=== PATIENT | female | born 1950 | race Caucasian/White ===

== ENCOUNTER 2020-08-04 18:06 | Inpatient (IN) | payer MEDICARE, MEDICAID ==
[~2020-08-04] VITALS: Ht 180.3 cm; Wt 74.0 kg
[2020-08-04] MEDS ORDERED: ondansetron 4mg rapidly disintigrating tab PO ONE (21:25)
[2020-08-04] MEDS ORDERED: HYDROcodone/acetaminophen 5mg/325mg tablet PO ONE (21:25)
--- NOTE | 2020-08-04 21:27 | NUR ---
Port xray at bedside. 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
--- NOTE | 2020-08-04 21:38 | NUR ---
Lab at bedside for blood draw.
[2020-08-04 22:07] LABS: PARTIAL THROMBOPLASTIN TIME 30 SECONDS (22-32)
[2020-08-04 22:09] LABS: ALANINE AMINOTRANSFERASE 20 U/L (12-78); ALBUMIN 2.7 G/DL (3.4-5.0); ALBUMIN/GLOBULIN RATIO 0.7 (1.1-1.5); ALKALINE PHOSPHATASE 85 IU/L (46-116); ANION GAP 9 (8-16); ASPARTATE AMINO TRANSFERASE 24 U/L (10-37); BILIRUBIN,TOTAL 0.7 MG/DL (0.1-1.0); BLOOD UREA NITROGEN 24 MG/DL (7-18); BUN/CREATININE RATIO 18.9 (6.6-38.0); CALCIUM 8.4 MG/DL (8.5-10.1); CHLORIDE 102 MMOL/L (99-107); CREATININE 1.27 MG/DL (0.40-0.90); GLUCOSE 88 MG/DL (70-104); POTASSIUM 4.7 MMOL/L (3.5-5.1); SODIUM 134 MMOL/L (135-145); TOTAL CARBON DIOXIDE 22.6 MMOL/L (24-32); TOTAL PROTEIN 6.8 G/DL (6.4-8.2); eGFR 42 ML/MIN
[2020-08-04 22:46] LABS: HEMATOCRIT 29.1 % (35.0-45.0); MEAN CORPUSCULAR HEMOGLOBIN 18.8 PG (27.0-31.0); MEAN CORPUSCULAR HGB CONC 30.9 g/dL (33.0-36.5); MEAN CORPUSCULAR VOLUME 60.8 FL (78-98); MEAN PLATELET VOLUME 8.3 FL (7.4-10.4); PLATELET COUNT 392 X10'3 (140-440); RED BLOOD COUNT 4.79 X10'6 (4.20-5.60); RED CELL DISTRIBUTION WIDTH 21.3 % (11.5-14.5); WHITE BLOOD COUNT 9.3 X10'3 (4.5-11.0)
[2020-08-04 22:48] LABS: BASOPHILS # (AUTO) 0.1 X10'3 (0-0.2); BASOPHILS % (AUTO) 0.9 % (0-1); EOSINOPHILS # (AUTO) 0.1 X10'3 (0-0.9); EOSINOPHILS % (AUTO) 0.8 % (0-6); LYMPHOCYTES # (AUTO) 1.5 X10'3 (1.1-4.8); LYMPHOCYTES % (AUTO) 15.4 % (21-51); MONOCYTES # (AUTO) 1.2 X10'3 (0-0.9); MONOCYTES % (AUTO) 12.2 % (2-12); NEUTROPHILS # (AUTO) 6.8 X10'3 (1.8-7.7); NEUTROPHILS % (AUTO) 70.7 % (42-75)
[2020-08-04 22:55] LABS: D-DIMER 1.64 MG/L FEU (0-0.50)
[2020-08-04] MEDS ORDERED: furosemide 40mg/4ml inj IV ONE (23:40)
[2020-08-05] MEDS ORDERED: acetaminophen 325mg tablet PO PRN (01:45)
[2020-08-05] MEDS ORDERED: potassium Cl 20 mEq SR tablet PO PRN ×2 (01:45)
[2020-08-05] MEDS ORDERED: mag hydrox/Alum hydrox/simeth 30ml oral suspension PO PRN (01:45)
[2020-08-05] MEDS ORDERED: potassium CL 10mEq/100ml bag 100 ML IV PRN ×2 (01:45)
[2020-08-05] MEDS ORDERED: magnesium hydroxide 30ml (MOM) UD suspension PO PRN (01:45)
[2020-08-05] MEDS ORDERED: ondansetron/PF 4mg/2ml inj IV PRN (01:45)
[2020-08-05] MEDS ORDERED: SACU1TAB PO (02:35)
[2020-08-05] MEDS ORDERED: POTA-82 PO (02:35)
[2020-08-05] MEDS ORDERED: RIVA20TA PO (02:35)
[2020-08-05] MEDS ORDERED: DIGO250T2 PO (02:35)
[2020-08-05] MEDS ORDERED: BUPR75TA12 PO (02:35)
[2020-08-05] MEDS ORDERED: FURO40TA4 PO (02:35)
[2020-08-05] MEDS ORDERED: MYCO360T3 PO (02:35)
[2020-08-05] MEDS ORDERED: METO200T49 PO ×2 (02:35)
[2020-08-05] MEDS ORDERED: ALBU2.5V10 NEB (02:35)
--- NOTE | 2020-08-05 03:01 | NUR ---
MED REC COMPLETED BY PREVIOUS RN AND PHARMACY. PT UNSURE OF FULL LIST OF MEDICATIONS.
[2020-08-05] MEDS ORDERED: BUPR100T13 PO (03:09)
[2020-08-05] MEDS ORDERED: MYCO250C46 PO (03:22)
[2020-08-05] MEDS ORDERED: METO-539 PO (03:22)
--- NOTE | 2020-08-05 03:49 | NUR ---
reviewed medications with patient. unable to fully complete med rec until we contact family tomorrow due to vague list provided, and pt not knowing meds, doses, or times.
--- NOTE | 2020-08-05 04:26 | NUR ---
daughter: justin, [phone] discussed the need for updated medication list. daughter states that she will gather appropriate information.
--- NOTE | 2020-08-05 06:41 | NUR ---
Patient in room ED 7. I have received report from Hayden COOPER and had the opportunity to ask questions and assume patient care.
--- NOTE | 2020-08-05 07:00 | NUR ---
Patient arrived to the floor accompanied by ED personnel. Telemetry monitoring initiated, vital signs obtained, patient belongings placed at the bedside, patient oriented to the room and call light. Will continue to monitor.
[2020-08-05 07:24] VITALS: BP 120/69
[2020-08-05] MEDS: K and/or MAG REPLACEMENT MC SCH ×2 (08:00→20:00)
[2020-08-05] MEDS ORDERED: furosemide 10 MG/1 ML 10ml inj IV SCH (08:00)
[2020-08-05] MEDS: digoxin 250mcg (0.25mg) tablet PO SCH (08:00)
[2020-08-05] MEDS: mycophenolate mofetil 250mg capsule PO SCH ×2 (09:15→20:30)
[2020-08-05] MEDS: sacubitril/valsartan 24mg-26mg tablet PO SCH ×2 (09:16→20:29)
[2020-08-05] MEDS: buPROPion 100mg tablet PO SCH ×3 (09:16→20:29)
[2020-08-05] MEDS: metoprolol succinate 25mg (24-HOUR) SR. Tablet PO SCH (09:16)
[2020-08-05] MEDS: levoTHYROXINE 25mcg tablet PO SCH (09:17)
--- NOTE | 2020-08-05 09:25 | NUR ---
Paged Dr. Tavera: PAGER ID: [phone] MESSAGE: [id number] Mckenna Marie: Patient has 7/10 generalized pain related to her edema, can she have something for pain? 5mg Belcamp given in ER 11 hrs ago. Thank you, Rose [id number]
[2020-08-05] MEDS: HYDROcodone/acetaminophen 5mg/325mg tablet PO PRN (11:01)
[2020-08-05] MEDS ORDERED: normal saline 1000ml 1,000 ML IV SCH (11:05)
[2020-08-05 15:00] VITALS: BP 102/46
[2020-08-05] MEDS ORDERED: midazolam 2 mg/2 ml injection ONE (16:30)
[2020-08-05] MEDS ORDERED: fentaNYL/PF 50MCG/1 ML 2ML syringe ONE (16:30)
[2020-08-05] MEDS ORDERED: LIDOcaine 1% (10mg/ml)w/preservative injection 20ml MDV ONE (16:30)
[2020-08-05 18:00] VITALS: BP 98/63
--- NOTE | 2020-08-05 18:25 | NUR ---
Problems reprioritized. Patient report given, questions answered & plan of care reviewed with Adele COOPER.
--- NOTE | 2020-08-05 18:30 | NUR ---
Patient in room PCU 3025. I have received report from Rose COOPER and had the opportunity to ask questions and assume patient care.
[2020-08-05] MEDS: furosemide 10 MG/1 ML 10ml inj IV SCH (20:29)
[2020-08-05 22:00] VITALS: BP 98/63
[2020-08-06] MEDS: HYDROcodone/acetaminophen 5mg/325mg tablet PO PRN ×4 (00:07→21:02)
[2020-08-06 02:00] VITALS: BP 93/63
--- NOTE | 2020-08-06 04:54 | NUR ---
Orientee documentation: I have reviewed and agree with all interventions, assessments performed and documented by Timi COOPER. [place] Medication Administration: For this medication-pass time frame, all medication were reviewed, dispensed, administered and documented per hospital policy by Timi COOPER.
--- NOTE | 2020-08-06 06:13 | NUR ---
Problems reprioritized. Patient report given, questions answered & plan of care reviewed with Mary Kay COOPER.
--- NOTE | 2020-08-06 06:30 | NUR ---
Patient in room PCU 3025. I have received report from KENNETH Angulo and had the opportunity to ask questions and assume patient care.
[2020-08-06 06:51] LABS: ALANINE AMINOTRANSFERASE 15 U/L (12-78); ALBUMIN 2.3 G/DL (3.4-5.0); ALBUMIN/GLOBULIN RATIO 0.6 (1.1-1.5); ALKALINE PHOSPHATASE 75 IU/L (46-116); ANION GAP 9 (8-16); ASPARTATE AMINO TRANSFERASE 16 U/L (10-37); BILIRUBIN,TOTAL 0.5 MG/DL (0.1-1.0); BLOOD UREA NITROGEN 29 MG/DL (7-18); BUN/CREATININE RATIO 17.3 (6.6-38.0); CALCIUM 8.4 MG/DL (8.5-10.1); CHLORIDE 107 MMOL/L (99-107); CREATININE 1.68 MG/DL (0.40-0.90); GLUCOSE 97 MG/DL (70-104); POTASSIUM 4.7 MMOL/L (3.5-5.1); SODIUM 138 MMOL/L (135-145); TOTAL CARBON DIOXIDE 22.1 MMOL/L (24-32); eGFR 30 ML/MIN
[2020-08-06 07:22] LABS: BASOPHILS # (AUTO) 0.1 X10'3 (0-0.2); BASOPHILS % (AUTO) 0.8 % (0-1); EOSINOPHILS # (AUTO) 0.1 X10'3 (0-0.9); HEMATOCRIT 27.4 % (35.0-45.0); LYMPHOCYTES # (AUTO) 1.3 X10'3 (1.1-4.8); LYMPHOCYTES % (AUTO) 13.9 % (21-51); MEAN CORPUSCULAR HEMOGLOBIN 18.2 PG (27.0-31.0); MEAN CORPUSCULAR HGB CONC 29.2 g/dL (33.0-36.5); MEAN CORPUSCULAR VOLUME 62.3 FL (78-98); MEAN PLATELET VOLUME 8.2 FL (7.4-10.4); MONOCYTES # (AUTO) 1.5 X10'3 (0-0.9); MONOCYTES % (AUTO) 15.9 % (2-12); NEUTROPHILS # (AUTO) 6.6 X10'3 (1.8-7.7); NEUTROPHILS % (AUTO) 68.4 % (42-75); PLATELET COUNT 383 X10'3 (140-440); RED CELL DISTRIBUTION WIDTH 22.8 % (11.5-14.5); WHITE BLOOD COUNT 9.6 X10'3 (4.5-11.0)
[2020-08-06 07:38] LABS: TOTAL CELLS COUNTED 100
[2020-08-06 07:39] LABS: ANISOCYTOSIS 3+; HYPOCHROMASIA 2+; MICROCYTOSIS 2+; PLATELET ESTIMATE NORMAL; SCHISTOCYTES FEW
[2020-08-06] MEDS: K and/or MAG REPLACEMENT MC SCH ×2 (08:00→20:00)
[2020-08-06] MEDS: mycophenolate mofetil 250mg capsule PO SCH ×2 (08:05→20:53)
[2020-08-06] MEDS: furosemide 10 MG/1 ML 10ml inj IV SCH (08:07)
[2020-08-06] MEDS: metoprolol succinate 25mg (24-HOUR) SR. Tablet PO SCH ×2 (08:07→08:27)
[2020-08-06] MEDS: buPROPion 100mg tablet PO SCH ×3 (08:10→20:53)
[2020-08-06] MEDS: levoTHYROXINE 25mcg tablet PO SCH (08:10)
[2020-08-06] MEDS: sacubitril/valsartan 24mg-26mg tablet PO SCH ×2 (10:29→20:53)
[2020-08-06] MEDS: digoxin 250mcg (0.25mg) tablet PO SCH (10:29)
[2020-08-06 12:23] VITALS: BP 94/65
--- NOTE | 2020-08-06 12:30 | NUR ---
Student documentation: I have reviewed and agree with all interventions, assessments performed and documented by Jorge, Plate Hanger.
--- NOTE | 2020-08-06 12:30 | NUR ---
Student Medication Administration: For this medication-pass time frame, all medication were reviewed, dispensed, administered and documented per hospital policy by marvin Patel.
--- NOTE | 2020-08-06 13:48 | NUR ---
notified. PAGER ID: [phone] MESSAGE: Re: Marie Mckenna. [id number]. Still no word from Dr. Bills regarding Cath today. Do you want me to call the office? Also to continue keeping patient NPO? thanks. Mary Kay. [phone].
[2020-08-06 15:00] VITALS: BP 98/48
[2020-08-06 18:00] VITALS: BP 103/57
--- NOTE | 2020-08-06 18:13 | NUR ---
Problems reprioritized. Patient report given, questions answered & plan of care reviewed with KENNETH Angulo.
--- NOTE | 2020-08-06 18:17 | NUR ---
Patient in room PCU 3025. I have received report from Mary Kay COOPER and had the opportunity to ask questions and assume patient care.
[2020-08-06] MEDS: furosemide 40mg/4ml inj IV SCH (20:59)
[2020-08-06 22:00] VITALS: BP 107/54
[2020-08-07] MEDS: HYDROcodone/acetaminophen 5mg/325mg tablet PO PRN ×3 (01:47→12:29)
[2020-08-07 02:00] VITALS: BP 93/58
[2020-08-07 02:53] LABS: BASOPHILS # (AUTO) 0.1 X10'3 (0-0.2); BASOPHILS % (AUTO) 0.7 % (0-1); EOSINOPHILS # (AUTO) 0.1 X10'3 (0-0.9); EOSINOPHILS % (AUTO) 0.7 % (0-6); HEMATOCRIT 27.7 % (35.0-45.0); HEMOGLOBIN 8.1 g/dl (12.0-16.0); LYMPHOCYTES # (AUTO) 1.2 X10'3 (1.1-4.8); LYMPHOCYTES % (AUTO) 9.1 % (21-51); MEAN CORPUSCULAR HGB CONC 29.3 g/dL (33.0-36.5); MEAN CORPUSCULAR VOLUME 61.5 FL (78-98); MEAN PLATELET VOLUME 8.3 FL (7.4-10.4); MONOCYTES # (AUTO) 1.6 X10'3 (0-0.9); NEUTROPHILS # (AUTO) 10.6 X10'3 (1.8-7.7); NEUTROPHILS % (AUTO) 77.5 % (42-75); PLATELET COUNT 377 X10'3 (140-440); RED BLOOD COUNT 4.51 X10'6 (4.20-5.60); RED CELL DISTRIBUTION WIDTH 21.6 % (11.5-14.5); WHITE BLOOD COUNT 13.7 X10'3 (4.5-11.0)
[2020-08-07 03:00] LABS: ALANINE AMINOTRANSFERASE 15 U/L (12-78); ALBUMIN 2.3 G/DL (3.4-5.0); ALBUMIN/GLOBULIN RATIO 0.6 (1.1-1.5); ALKALINE PHOSPHATASE 77 IU/L (46-116); ANION GAP 9 (8-16); ASPARTATE AMINO TRANSFERASE 17 U/L (10-37); BILIRUBIN,TOTAL 0.5 MG/DL (0.1-1.0); BLOOD UREA NITROGEN 32 MG/DL (7-18); BUN/CREATININE RATIO 17.2 (6.6-38.0); CALCIUM 8.2 MG/DL (8.5-10.1); CHLORIDE 102 MMOL/L (99-107); CREATININE 1.86 MG/DL (0.40-0.90); GLUCOSE 100 MG/DL (70-104); POTASSIUM 4.3 MMOL/L (3.5-5.1); SODIUM 134 MMOL/L (135-145); TOTAL CARBON DIOXIDE 22.7 MMOL/L (24-32); eGFR 27 ML/MIN
[2020-08-07 03:16] LABS: ANISOCYTOSIS 3+; HYPOCHROMASIA 2+; MICROCYTOSIS 2+; PLATELET ESTIMATE NORMAL; SCHISTOCYTES FEW; TOTAL CELLS COUNTED 100
[2020-08-07 03:17] LABS: ACANTHOCYTES 1+
--- NOTE | 2020-08-07 06:21 | NUR ---
Problems reprioritized. Patient report given, questions answered & plan of care reviewed with Toshia.
[2020-08-07 07:00] VITALS: BP 89/49
--- NOTE | 2020-08-07 07:18 | NUR ---
Called Simran regarding pts critical potassium of 2.4. No answer. Will continue to monitor patients heart rate and rhythm Addendum: 08/07/20 at 0719 by Toshia Gerber RN Incorrect pt
[2020-08-07] MEDS: metoprolol succinate 25mg (24-HOUR) SR. Tablet PO SCH (08:00)
[2020-08-07] MEDS: furosemide 40mg/4ml inj IV SCH ×2 (08:00→20:45)
[2020-08-07] MEDS: sacubitril/valsartan 24mg-26mg tablet PO SCH ×2 (08:00→20:46)
[2020-08-07] MEDS: buPROPion 100mg tablet PO SCH ×3 (08:05→20:46)
[2020-08-07] MEDS: mycophenolate mofetil 250mg capsule PO SCH ×2 (08:05→20:46)
[2020-08-07] MEDS: digoxin 250mcg (0.25mg) tablet PO SCH (08:06)
[2020-08-07] MEDS: levoTHYROXINE 75mcg tablet PO SCH (08:06)
[2020-08-07] MEDS: K and/or MAG REPLACEMENT MC SCH ×2 (08:09→20:48)
[2020-08-07 11:00] VITALS: BP 103/57
[2020-08-07 15:00] VITALS: BP 97/56
[2020-08-07 18:00] VITALS: BP 95/57
--- NOTE | 2020-08-07 18:06 | NUR ---
Problems reprioritized. Patient report given, questions answered & plan of care reviewed with KENNETH Veras.
--- NOTE | 2020-08-07 18:21 | NUR ---
Patient in room PCU 3025. I have received report from KENNETH Angulo and had the opportunity to ask questions and assume patient care.
[2020-08-07 22:00] VITALS: BP 105/60
[2020-08-08 02:00] VITALS: BP 105/63
[2020-08-08] MEDS: HYDROcodone/acetaminophen 5mg/325mg tablet PO PRN ×4 (02:47→21:42)
[2020-08-08 06:00] VITALS: BP 118/68
--- NOTE | 2020-08-08 06:10 | NUR ---
Patient in room PCU 3025. I have received report from Eda COOPER and had the opportunity to ask questions and assume patient care.
[2020-08-08 07:29] LABS: BASOPHILS # (AUTO) 0.1 X10'3 (0-0.2); BASOPHILS % (AUTO) 0.7 % (0-1); EOSINOPHILS # (AUTO) 0.1 X10'3 (0-0.9); EOSINOPHILS % (AUTO) 0.8 % (0-6); HEMATOCRIT 26.2 % (35.0-45.0); HEMOGLOBIN 7.8 g/dl (12.0-16.0); LYMPHOCYTES # (AUTO) 1.3 X10'3 (1.1-4.8); LYMPHOCYTES % (AUTO) 13.3 % (21-51); MEAN CORPUSCULAR HEMOGLOBIN 18.3 PG (27.0-31.0); MEAN CORPUSCULAR HGB CONC 29.9 g/dL (33.0-36.5); MEAN CORPUSCULAR VOLUME 61.3 FL (78-98); MEAN PLATELET VOLUME 8.3 FL (7.4-10.4); MONOCYTES # (AUTO) 1.2 X10'3 (0-0.9); MONOCYTES % (AUTO) 12.7 % (2-12); NEUTROPHILS # (AUTO) 6.9 X10'3 (1.8-7.7); NEUTROPHILS % (AUTO) 72.5 % (42-75); PLATELET COUNT 337 X10'3 (140-440); RED BLOOD COUNT 4.27 X10'6 (4.20-5.60); RED CELL DISTRIBUTION WIDTH 22.1 % (11.5-14.5); WHITE BLOOD COUNT 9.5 X10'3 (4.5-11.0)
[2020-08-08 07:48] LABS: ALANINE AMINOTRANSFERASE 18 U/L (12-78); ALBUMIN 2.5 G/DL (3.4-5.0); ALBUMIN/GLOBULIN RATIO 0.7 (1.1-1.5); ALKALINE PHOSPHATASE 71 IU/L (46-116); ANION GAP 9 (8-16); ASPARTATE AMINO TRANSFERASE 16 U/L (10-37); BILIRUBIN,TOTAL 0.4 MG/DL (0.1-1.0); BLOOD UREA NITROGEN 33 MG/DL (7-18); BUN/CREATININE RATIO 16.8 (6.6-38.0); CALCIUM 8.5 MG/DL (8.5-10.1); CHLORIDE 104 MMOL/L (99-107); CREATININE 1.97 MG/DL (0.40-0.90); GLUCOSE 91 MG/DL (70-104); POTASSIUM 4.6 MMOL/L (3.5-5.1); SODIUM 136 MMOL/L (135-145); TOTAL CARBON DIOXIDE 23.4 MMOL/L (24-32); TOTAL PROTEIN 6.2 G/DL (6.4-8.2); eGFR 25 ML/MIN
[2020-08-08] MEDS: K and/or MAG REPLACEMENT MC SCH ×2 (08:00→20:00)
[2020-08-08] MEDS: metoprolol succinate 25mg (24-HOUR) SR. Tablet PO SCH (08:16)
[2020-08-08] MEDS: sacubitril/valsartan 24mg-26mg tablet PO SCH ×2 (08:16→21:41)
[2020-08-08] MEDS: furosemide 40mg/4ml inj IV SCH ×2 (08:17→21:43)
[2020-08-08] MEDS: buPROPion 100mg tablet PO SCH ×3 (08:17→21:42)
[2020-08-08] MEDS: mycophenolate mofetil 250mg capsule PO SCH ×2 (08:18→21:44)
[2020-08-08 08:35] LABS: ANISOCYTOSIS 3+; HYPOCHROMASIA 2+; MICROCYTOSIS 2+; POLYCHROMASIA FEW
[2020-08-08 08:36] LABS: LARGE PLATELETS FEW
[2020-08-08 08:37] LABS: PLATELET ESTIMATE NORMAL; POIKILOCYTOSIS FEW; SCHISTOCYTES FEW
[2020-08-08] MEDS: levoTHYROXINE 75mcg tablet PO SCH (08:37)
[2020-08-08] MEDS: digoxin 250mcg (0.25mg) tablet PO SCH (10:45)
[2020-08-08 11:00] VITALS: BP 120/57
--- NOTE | 2020-08-08 11:06 | NUR ---
Dr. Tavera at bedside with patient and nurse. New orders to add docusate 100 BID PO. Patient expressed concern with anti anxiety meds. No new orders at this time. Patient is wanting to go to rehab after hospital stay. Will continue to monitor.
[2020-08-08 15:00] VITALS: BP 114/65
[2020-08-08 18:00] VITALS: BP 122/93
--- NOTE | 2020-08-08 18:20 | NUR ---
Problems reprioritized. Patient report given, questions answered & plan of care reviewed with Waleska COOPER.
--- NOTE | 2020-08-08 19:13 | NUR ---
Patient in room U 3025. I have received report from CARINA COOPER and had the opportunity to ask questions and assume patient care. Addendum: 08/08/20 at 1914 by Izzy Turpin RN Amended: Links added.
--- NOTE | 2020-08-08 21:30 | NUR ---
HS MEDS OBTAINED AND GIVEN TO PT ALONG WITH PAIN PILL.
[2020-08-08] MEDS: docusate sod 100mg capsule PO SCH (21:40)
[2020-08-08 22:30] VITALS: BP 105/66
--- NOTE | 2020-08-08 22:40 | NUR ---
PT POSITIONED TO COMFORT RESTING SKIN REMAINS RED AND TAUNT ALL OVER BODY.
--- NOTE | 2020-08-09 00:45 | NUR ---
RESTING EYES CLOSED WITHOUT CHANGES OR S&S OF DISTRESS.
[2020-08-09 02:00] VITALS: BP 112/62
--- NOTE | 2020-08-09 02:45 | NUR ---
PT REPOSITIONED IN BED FOR COMFORT RESTING NO CHANGES.
--- NOTE | 2020-08-09 04:52 | NUR ---
RESTING EYES CLOSED WITHOUT CHANGES.
[2020-08-09 06:10] VITALS: BP 100/61
--- NOTE | 2020-08-09 06:16 | NUR ---
Problems reprioritized. Patient report given, questions answered & plan of care reviewed with ANNE COOPER. Addendum: 08/09/20 at 0617 by Izzy Turpin RN Amended: Links added.
--- NOTE | 2020-08-09 06:32 | NUR ---
Problems reprioritized. Patient report given, questions answered & plan of care reviewed with JULI Mendenhall RN. Addendum: 08/09/20 at 0632 by Izzy Turpin RN Amended: Links added.
--- NOTE | 2020-08-09 06:38 | NUR ---
Patient in room PCU 3025. I have received report from Ivanna COOPER and had the opportunity to ask questions and assume patient care.
[2020-08-09] MEDS: K and/or MAG REPLACEMENT MC SCH (08:00)
[2020-08-09] MEDS: buPROPion 100mg tablet PO SCH ×2 (08:42→12:26)
[2020-08-09] MEDS: HYDROcodone/acetaminophen 5mg/325mg tablet PO PRN ×2 (08:42→13:08)
[2020-08-09] MEDS: furosemide 40mg/4ml inj IV SCH (08:42)
[2020-08-09] MEDS: docusate sod 100mg capsule PO SCH (08:42)
[2020-08-09] MEDS: metoprolol succinate 25mg (24-HOUR) SR. Tablet PO SCH (08:42)
[2020-08-09] MEDS: mycophenolate mofetil 250mg capsule PO SCH (08:44)
[2020-08-09] MEDS: levoTHYROXINE 75mcg tablet PO SCH (08:46)
[2020-08-09] MEDS: sacubitril/valsartan 24mg-26mg tablet PO SCH (08:46)
[2020-08-09] MEDS: digoxin 250mcg (0.25mg) tablet PO SCH (09:47)
--- NOTE | 2020-08-09 11:09 | NUR ---
Dr. Mahoney at bedside with patient and nurse. Labs were not drawn last night and due to pts history of H and H MD wanted to wait to confirm H/H levels before transferring pt to [facility].Labs were drawn. Will continue to monitor.
[2020-08-09 11:10] VITALS: BP 109/76
[2020-08-09 11:20] LABS: BASOPHILS # (AUTO) 0.1 X10'3 (0-0.2); BASOPHILS % (AUTO) 0.9 % (0-1); EOSINOPHILS # (AUTO) 0.1 X10'3 (0-0.9); EOSINOPHILS % (AUTO) 0.8 % (0-6); HEMATOCRIT 27.2 % (35.0-45.0); HEMOGLOBIN 8.1 g/dl (12.0-16.0); LYMPHOCYTES # (AUTO) 1.2 X10'3 (1.1-4.8); LYMPHOCYTES % (AUTO) 12.8 % (21-51); MEAN CORPUSCULAR HEMOGLOBIN 18.2 PG (27.0-31.0); MEAN CORPUSCULAR HGB CONC 29.8 g/dL (33.0-36.5); MEAN CORPUSCULAR VOLUME 61.1 FL (78-98); MEAN PLATELET VOLUME 8.3 FL (7.4-10.4); MONOCYTES # (AUTO) 1.3 X10'3 (0-0.9); MONOCYTES % (AUTO) 13.7 % (2-12); NEUTROPHILS # (AUTO) 6.9 X10'3 (1.8-7.7); NEUTROPHILS % (AUTO) 71.8 % (42-75); PLATELET COUNT 366 X10'3 (140-440); RED BLOOD COUNT 4.45 X10'6 (4.20-5.60); WHITE BLOOD COUNT 9.6 X10'3 (4.5-11.0)
[2020-08-09 11:38] LABS: ALANINE AMINOTRANSFERASE 16 U/L (12-78); ALBUMIN 2.5 G/DL (3.4-5.0); ALBUMIN/GLOBULIN RATIO 0.7 (1.1-1.5); ALKALINE PHOSPHATASE 68 IU/L (46-116); ANION GAP 8 (8-16); ASPARTATE AMINO TRANSFERASE 19 U/L (10-37); BILIRUBIN,TOTAL 0.5 MG/DL (0.1-1.0); BLOOD UREA NITROGEN 31 MG/DL (7-18); BUN/CREATININE RATIO 19.7 (6.6-38.0); CALCIUM 8.5 MG/DL (8.5-10.1); CHLORIDE 102 MMOL/L (99-107); CREATININE 1.57 MG/DL (0.40-0.90); GLUCOSE 88 MG/DL (70-104); POTASSIUM 4.5 MMOL/L (3.5-5.1); SODIUM 134 MMOL/L (135-145); TOTAL PROTEIN 6.3 G/DL (6.4-8.2); eGFR 33 ML/MIN
[2020-08-09 12:07] LABS: ANISOCYTOSIS 3+; MICROCYTOSIS 2+; PLATELET ESTIMATE NORMAL
[2020-08-09 12:08] LABS: HYPOCHROMASIA 1+; POLYCHROMASIA FEW; SCHISTOCYTES FEW; STOMATOCYTES 1+; TARGET CELLS FEW
--- NOTE | 2020-08-09 12:48 | NUR ---
Patient to transfer to [facility] at 1400. Problems reprioritized. Patient report given, questions answered & plan of care reviewed with Jennifer RN at [facility]. Patient report explained, VSS, and all paperwork complete and ready to go. Answered all questions to Jennifer.
--- NOTE | 2020-08-09 14:10 | NUR ---
Patients items were packed up and sent with patient. A couple check with LUL was conducted to make sure that all personal persoanl items were collected and sent with a patient. Two personal intake came to transport patient to [facility]. Reported by a call to shad the nurse. Consuelo martin [id number], Paitnr [id number]
== END 2020-08-09 14:15 | DRG 291 ==
LOC: ER 18:07 → ED HOLD 08-05 01:41 → PCU 3S 08-05 06:47
PROVIDERS: ADMIT Internal Medicine; ATTEND Family Medicine
DX: I13.0 Hypertensive heart and chronic kidney disease with heart failure and stage 1 through stage 4 chronic kidney disease, or unspecified chronic kidney disease (principal); I50.33 Acute on chronic diastolic (congestive) heart failure; E87.1 Hypo-osmolality and hyponatremia; M34.9 Systemic sclerosis, unspecified; D64.9 Anemia, unspecified; E03.9 Hypothyroidism, unspecified; I07.1 Rheumatic tricuspid insufficiency; I27.20 Pulmonary hypertension, unspecified; F32.9 Major depressive disorder, single episode, unspecified; B33.24 Viral cardiomyopathy; Z60.2 Problems related to living alone; G62.9 Polyneuropathy, unspecified; I95.9 Hypotension, unspecified; N18.9 Chronic kidney disease, unspecified; Z20.828 Contact with and (suspected) exposure to other viral communicable diseases; R09.02 Hypoxemia; R13.10 Dysphagia, unspecified; Z79.890 Hormone replacement therapy; Z87.11 Personal history of peptic ulcer disease; Z95.810 Presence of automatic (implantable) cardiac defibrillator; Z79.899 Other long term (current) drug therapy
CPT/HCPCS: 36415; 71045; 76937; 80053; 80162; 83880; 84443; 84484; 85007; 85008; 85025; 85379; 85610; 85730; 87081; 87635; 93005; 93306; 93308; 96374; 97110; 97116; 97162; 97530; 99285; C9803; G0378; J1644; J1940; J2001; J2250; J3010; J7030; J7517